=== PATIENT | female | born 1950 | race Caucasian/White ===

== ENCOUNTER 2019-03-11 09:00 | Outpatient (CLI) | payer OTHER ==
[~2019-03-11] VITALS: Ht 170 cm; Wt 104.0 kg
[~2019-03-11 09:00] MED LIST: APIX5TAB PO; ATOR10TA66 PO; DAPA1TAB5 PO; GLIP10TA13 PO; HYDR25TA4 PO; LOSA100T57 PO; METF750T2 PO; METO-387 PO; MONT10TA24 PO; PANT40TA3 PO
== END 2019-03-11 09:08 | disposition home or self-care (01) ==
LOC: PREOP 09:00
PROVIDERS: ATTEND Surgery
DX: Z01.818 Encounter for other preprocedural examination (principal)

== ENCOUNTER 2019-03-17 09:50 | Day surgery (SDC) | payer MEDICARE, OTHER ==
--- NOTE | 2019-03-09 07:42 | HISTORY AND PHYSICAL ---
DATE OF SERVICE: PROCEDURE DATE: 03/17/2019. ATTENDING PHYSICIAN: Dr. Barillas. HISTORY OF PRESENT ILLNESS: The patient is a 69-year-old female, who was referred over to us in need of a screening colonoscopy. The patient reports her last colonoscopy was in 2000, which she reports was normal. She reports that since that time, she has not had any blood in her stool. Denies any family history of colon cancer. She denies any diarrhea or constipation. She does report that she does occasionally get some episodes of right lower quadrant abdominal discomfort and this will occasionally radiate towards the left lower abdominal quadrant. She reports that she does take stool softeners to help keep her stools soft. PAST MEDICAL HISTORY: Atrial fibrillation, type 2 diabetes, hypertension, hypercholesterolemia, gastroesophageal reflux disease. PAST SURGICAL HISTORY: Tonsillectomy in 1981, laparoscopic cholecystectomy in 2003, bilateral cataracts in 2012, removal of cyst from the left hand in 2005, left breast lumpectomy in 2007, which was negative. ALLERGIES: PENICILLIN, SULFA, ADHESIVE TAPE. MEDICATIONS: Eliquis, atorvastatin, metoprolol, glipizide, Protonix, hydrochlorothiazide, losartan. SOCIAL HISTORY: Negative for smoke, negative for alcohol. FAMILY HISTORY: Mother, type 2 diabetes, stroke, hypertension. Father, myocardial infarction in his 60s, hypertension. Sister, type 2 diabetes, hypertension. Brother with hypertension. VITAL SIGNS: Blood pressure is 118/64. Current weight is 253.0, 5 feet 7 inches. REVIEW OF SYSTEMS: Well-nourished female, in no acute distress. She is not experiencing any shortness of breath or difficulty breathing. No chest pain, palpitations or diaphoresis. No nausea or vomiting. She does report occasional episodes of right lower abdominal quadrant discomfort that does radiate towards the left lower abdominal quadrant. No diarrhea, no constipation. No red blood per rectum. No dark tarry stools. No fever or chills. No recent inadvertent weight loss. All other review of systems negative. PHYSICAL EXAMINATION: CHEST: Clear. Good breath sounds bilaterally. HEART: Regular, no murmurs. EXTREMITIES: No lower extremity edema. Negative Homans sign. HEENT: No scleral icterus. No cervical lymphadenopathy. ABDOMEN: Soft, nontender, nondistended. SKIN: Warm, dry and pink. NEUROLOGIC: Awake, alert, oriented x3. ASSESSMENT AND PLAN: A 69-year-old female, who is in need of a screening colonoscopy. At this time, the risks and benefits of the procedure as well as the procedure and home care instructions were explained to the patient. The patient verbalized understanding of instructions and agrees to proceed as planned. At this time, we will proceed with scheduling the patient for a screening colonoscopy. Job ID: [id number] DocumentID: [id number] Dictated Date: 03/04/2019 08:10:36 Map Drafter Date: 03/04/2019 09:10:24 Dictated By: DYANA VARELA
[2019-03-17] VITALS (12 sets, daily range): BP systolic 120–183; BP diastolic 58–92
[~2019-03-17] VITALS: Ht 170 cm; Wt 104.0 kg
[2019-03-17] MEDS ORDERED: NS IV 500 ML 500 ML ONE (09:54)
[2019-03-17] MEDS ORDERED: NS IV 500 ML 500 ML IV PRN (09:56)
[2019-03-17] MEDS ORDERED: LIDOCAINE JELLY 2% 6 ML SYRINGE MM PRN (10:00)
[2019-03-17] MEDS ORDERED: fentaNYL INJECTION 100 MCG/2 ML AMP IVP ONE (10:00)
[2019-03-17] MEDS ORDERED: PROPOFOL INJECTION 50 ML IV ONE (10:45)
[2019-03-17] MEDS ORDERED: MIDAZOLAM 2 MG/2 ML (VERSED) VIAL ONE ×3 (10:45→12:08)
[2019-03-17] MEDS ORDERED: HURRICAINE EXT TUBE (BENZOCAINE) ONE (10:46)
[2019-03-17] MEDS ORDERED: LIDOCAINE JELLY 2% 6 ML SYRINGE ONE (11:33)
[2019-03-17] MEDS ORDERED: fentaNYL INJECTION 100 MCG/2 ML AMP ONE (11:34)
[2019-03-17] MEDS ORDERED: MIDAZOLAM 5 MG/5 ML (VERSED) VIAL ONE (11:34)
[2019-03-17] MEDS: MIDAZOLAM 5 MG/5 ML (VERSED) VIAL IV PRN ×4 (11:43→12:10)
--- NOTE | 2019-03-17 11:51 | Conscious Sedation/ASA ---
Conscious Sedation Pre-Proced Time 11:30 ASA Score 2 For ASA 3 and 4: Consider anesthesia and medical clearance. Also, for patients with a history of failed moderate sedation consider anesthesia. Airway Lungs Heart ASA score ASA 1: a normal healthy patient ASA 2: a patient with a mild systemic disease (mid diabetes, controlled hypertension, obesity ASA 3: a patient with a severe systemic disease that limits activity (angina, COPD, prior Myocardial infarction) ASA 4: a patient with an incapacitating disease that is a constant threat to life (CHF, renal failure) ASA 5: a moribund patient not expected to survive 24 hrs. (ruptured aneurysm) ASA 6: a declared brain- patient whose organs are being harvested. For emergent operations, add the letter E after the classification Mallampati Classification Grade 2 Sedation Plan Analgesia, Amnesia, Plan communicated to team members, Discussed options with patient/fam, Discussed risks with patient/fam The patient is an appropriate candidate to undergo the planned procedure, sedation, and anesthesia. The patient immediately re-assessed prior to indication. ROLAND PECK MD Mar 17, 2019 11:51 POS
--- NOTE | 2019-03-17 11:51 | Progress Note-Pre Operative ---
Pre-Operative Progress Note H&P Reviewed The H&P was reviewed, patient examined and no changes noted. Date Seen by Provider: Mar 17, 2019 Time Seen by Provider: 11:30 Date H&P Reviewed: Mar 17, 2019 Time H&P Reviewed: :30 Pre-Operative Diagnosis: screening o ROLAND PECK MD Mar 17, 2019 11:51 POS
--- NOTE | 2019-03-17 11:53 | Discharge Inst-Surgical ---
D/C Lap Instructions-LIV Follow Up Activity as tolerated Regular Diet Symptoms to Report: Fever over 101 degree F, Nausea/Vomiting Infection Signs and Symptoms to report: Increased redness, Foul odor of wound, Increased drainage Bathing instructions: May shower Operative Area Clean/Dry; Keep incision clean/dry If any problems/questions: Contact your physician or go to Emergency Room ROLAND PECK MD Mar 17, 2019 11:53 POS
[2019-03-17] MEDS ORDERED: ACETAMINOPHEN 325 MG TABLET PO PRN (12:00)
[2019-03-17] MEDS ORDERED: morphine INJ 10 MG/ML 1ML (SYR OR VIAL) IVP PRN ×2 (12:00)
[2019-03-17] MEDS ORDERED: HYDROcodone/APAP 5 MG/325 MG (LORTAB) TAB PO PRN (12:00)
[2019-03-17] MEDS ORDERED: ONDANSETRON 4 MG (ZOFRAN) ORAL DISSOLVE TAB PO PRN (12:00)
--- NOTE | 2019-03-17 17:12 | OPERATIVE REPORT ---
DATE OF SERVICE: 03/17/2019 ATTENDING PRIMARY CARE PHYSICIAN: Serjio Barillas MD PREOPERATIVE DIAGNOSIS: Screening colonoscopy. POSTOPERATIVE DIAGNOSIS: Mild chronic stage II external and internal hemorrhoids. Remainder of the colon and rectum were normal. PROCEDURE PERFORMED: Colonoscopy. SURGEON: Roland Peck MD. ANESTHESIA: Conscious sedation. ESTIMATED BLOOD LOSS: Minimal. FINDINGS: Mild chronic stage II external and internal hemorrhoids, no polyps or any neoplasms identified. DISPOSITION: The patient tolerated the procedure well. INDICATIONS: The patient is a 69-year-old female, referred over to us for screening colonoscopy. Her last colonoscopy was in 2000 and she believes that to be normal. She does not report any major issues with diarrhea nor constipation as well as no red blood per rectum nor any dark tarry stools. She also does not report any family history of colon cancer. DESCRIPTION OF PROCEDURE: The patient was brought to the endoscopy suite, laid in the left lateral decubitus position. After adequate IV pain and sedative medications and conscious sedation anesthesia, digital rectal examination was performed. Mild chronic stage II external and internal hemorrhoids were identified, which were not actively edematous nor inflamed and no bleeding. Normal sphincter tone was felt and there were no palpable masses. The endoscope was then intubated to the anus and rectum gently insufflated. The endoscope was then advanced to the valves of [place] of the rectum with no polyps or any neoplasms identified. There was no diverticulosis identified. The endoscope was then advanced to the remainder of the descending, transverse and ascending colon to the cecum. These segments were normal. There were no polyps or any neoplasms identified throughout the colon or rectum. Endoscope was then slowly withdrawn while taking a second look and suctioning of residual air with no additional findings. The patient tolerated the procedure well. We will recommend continued medical management with a high fiber diet with 25 grams of fiber daily as well as significant amounts of water to promote soft stools on a daily basis and to rely less on laxatives as well as stool softeners. She does not need another colonoscopy for another 10 years; however, sooner if she becomes symptomatic. Job ID: [id number] DocumentID: [id number] Dictated Date: 03/17/2019 12:20:06 Utilization Management Rn Date: 03/17/2019 17:11:09 Dictated By: ROLAND PECK MD
== END 2019-03-17 12:50 | disposition home or self-care (01) ==
LOC: ENDO 09:50
PROVIDERS: ATTEND Surgery
DX: Z12.11 Encounter for screening for malignant neoplasm of colon (principal); K64.1 Second degree hemorrhoids; I48.91 Unspecified atrial fibrillation; E11.9 Type 2 diabetes mellitus without complications; I10 Essential (primary) hypertension; E78.00 Pure hypercholesterolemia, unspecified; K21.9 Gastro-esophageal reflux disease without esophagitis; Z88.0 Allergy status to penicillin; Z88.2 Allergy status to sulfonamides; Z79.01 Long term (current) use of anticoagulants; Z79.84 Long term (current) use of oral hypoglycemic drugs; Z79.899 Other long term (current) drug therapy
CPT/HCPCS: G0121